=== PATIENT | female | born 1935 | race Caucasian/White ===

== ENCOUNTER 2023-12-09 08:23 | Emergency (ER) | payer MEDICARE, BC ==
[2023-12-09 09:15] LABS: HEMATOCRIT 40.2 % (37.0-47.0); HEMOGLOBIN 13.1 gm/dl (12.0-16.0); MEAN CORPUSCULAR HEMOGLOBIN 30.3 pg (28.0-32.0); MEAN CORPUSCULAR HGB CONC 32.6 g/dl (32.0-36.0); MEAN CORPUSCULAR VOLUME 93.1 fl (83.0-99.0); MEAN PLATELET VOLUME 12.2 fl (9.4-12.3); PLATELET COUNT,PLT 206 K/mm3 (150-400); RED BLOOD CELL COUNT 4.32 M/mm3 (4.10-5.30); WHITE BLOOD CELL COUNT,WBC 11.37 K/mm3 (3.9-11.3)
[2023-12-09 09:43] LABS: INR 1.06; PROTHROMBIN TIME 11.3 SECONDS (9.7-12.0)
[2023-12-09 09:57] LABS: A/G RATIO 0.8 (1-2); ALBUMIN 3.3 g/dl (3.4-5.0); ANION GAP 15.8 (5-15); CALCIUM 9.5 mg/dL (8.5-10.1); EST CRCL DRUG DOSING (CG) 31.35 mL/min; MAGNESIUM 1.6 mg/dL (1.8-2.4); POTASSIUM,K 2.8 mEq/L (3.5-5.1); PROTEIN TOTAL,TP 7.7 g/dl (6.4-8.2)
[2023-12-09] MEDS: Potassium Chloride 10 MEQ in Premix Bag 1 BAG IV SCH ×4 (11:29→13:57)
== END 2023-12-09 15:21 | disposition home or self-care (01) ==
LOC: JD.ED 08:23
DX: I24.9 Acute ischemic heart disease, unspecified (principal); I44.1 Atrioventricular block, second degree; I10 Essential (primary) hypertension
CPT/HCPCS: 36415; 71045; 80053; 83690; 83735; 83880; 84484; 85027; 85610; 93005; 99285; J3480